=== PATIENT | female | born 2000 | race African-American/Black ===

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

== ENCOUNTER 2021-03-04 16:18 | Emergency (ER) | payer MEDICAID ==
[2021-03-04 16:49] LABS: Bilirubin Small (Negative); Blood, Urine Trace (Negative); Clarity Slightly Cloudy (Clear); Glucose, Urine (Dipstick) Negative (Negative); Ketone, Urine 40 mg/dL (Negative); Leukocyte Moderate (Negative); Nitrite Negative (Negative); Protein, Urine (Dipstick) Negative (Neg-Trace)
[2021-03-04 16:58] LABS: Bacteria/HPF 3+ HPF (None Seen); RBC/HPF 0-3 HPF (0-3); Trichomonas/HPF 1+ HPF (None Seen)
[2021-03-04 16:59] LABS: Mucous/LPF 2+ LPF (<2+)
[2021-03-04] MEDS ORDERED: Sulfameth/Trimethoprim DS 800-160mg TAB ONE ×2 (17:03→17:12)
[2021-03-04] MEDS ORDERED: Phenazopyridine HCl 97.5 MG TABLET ONE (17:03)
[2021-03-05 20:32] LABS: Chlam.trachomatis by PCR,Urine Not Detected (NotDetected)
== END 2021-03-04 17:15 | disposition home or self-care (01) ==
LOC: BURERS 16:18
DX: N39.0 Urinary tract infection, site not specified (principal); A59.01 Trichomonal vulvovaginitis; K21.9 Gastro-esophageal reflux disease without esophagitis
CPT/HCPCS: 81003; 81015; 87086; 87491; 87591; 99284